=== PATIENT | female | born 1965 | race Caucasian/White ===

== ENCOUNTER 2025-04-08 09:10 | Outpatient (CLI) | payer OTHER, SELFPAY ==
--- NOTE | ~2025-04-08 | CT_ITS ---
EXAMINATION: CT IAC/mastoids BI wo con DATE: 04/08/2025 09:47 INDICATION: Pulsatile tinnitus of the right inferior TECHNIQUE: Computed tomography (CT) of the temporal bones was performed without intravenous contrast. The dose-length product was 342.07 mGy-cm. COMPARISON: None FINDINGS: RIGHT TEMPORAL BONE: The external auditory canal, tympanic membrane, ossicles and scutum are normal. The mastoid air cells , middle ear cavity including Prussak's space are clear. The oval window, vestibule, cochlea, semicir cular canals, internal auditory canal, vestibular aqueduct and course of the facial nerve are normal. The external auditory canal, carotid canal and jugular bulb are unremarkable. LEFT TEMPORAL BONE: The external auditory canal, tympanic membrane, ossicles and scutum are normal. The mastoid air cells , middle ear cavity including Prussak's space are clear. The oval window, vestibule, cochlea, semicir cular canals, internal auditory canal, vestibular aqueduct and course of the facial nerve are normal. The external auditory canal, carotid canal and jugular bulb are unremarkable. IMPRESSION: 1. Normal CT of the bilateral temporal bones. Reviewed, dictated and finalized at location A.
== END 2025-04-08 09:11 | disposition home or self-care (01) ==
PROVIDERS: PCP Internal Medicine Interventional Cardiology; Visit Provider Otolaryngology
DX: H93.A9 Pulsatile tinnitus, unspecified ear (principal)
CPT/HCPCS: 70480